=== PATIENT | male | born 1970 | race Hispanic/Latino ===

== ENCOUNTER 2017-02-07 02:23 | Emergency (ER) | payer OTHER ==
[2017-02-07 02:51] VITALS: BP 122/83; PULSE 89; RESP 18; TEMP 98.2; O2SAT 97
--- NOTE | 2017-02-07 04:12 | ED PDOC ---
Arrival/HPI <Nabil Traore - Last Filed: 02/07/17 04:23> <George Jj - Last Filed: 02/07/17 08:03> - General Chief Complaint: Medical Clearance Time Seen by Provider: 02/07/17 03:11 - History of Present Illness Narrative History of Present Illness (Text): 02/07/17 04:19 Patient is a 46 year old male presenting to the ED stating he is going through opioid withdrawal. He started abusing opioids 4 years ago. He states the last time he used was 3 days ago, when he took one 10mg percocet. He reports that he only takes pills and has never injected anything. Denies ever using heroin. He states that he has noticed that he is no longer a good person to his family, has lost a lot of weight and that his life now revolves around getting opioid pills. He states that he knows 5 different people and at what time of the month that he can call them to get the pills. He is afraid that his is going to leave him and take his 5 kids. He wants to start inpatient rehab to detox from opioids. (Nabil Traore) Past Medical History - Provider Review Nursing Documentation Reviewed: Yes - Cardiac Hx Cardiac Disorders: No - Pulmonary Hx Respiratory Disorders: No - Neurological Hx Neurological Disorder: No - HEENT Hx HEENT Disorder: No - Renal Hx Renal Disorder: No - Endocrine/Metabolic Hx Diabetes Mellitus Type 2: Yes - Hematological/Oncological Hx Blood Disorders: No - Integumentary Hx Dermatological Disorder: No - Musculoskeletal/Rheumatological Other/Comment: fx left ankle - Gastrointestinal Hx Gastritis: Yes - Genitourinary/Gynecological Hx Genitourinary Disorders: No - Psychiatric Hx Psychophysiologic Disorder: No Hx Substance Use: Yes (sunday) - Surgical History Other/Comment: "varicocele" - Anesthesia Hx Anesthesia: Yes Hx Anesthesia Reactions: No - Suicidal Assessment Feels Threatened In Home Enviroment: No <Nabil Traore - Last Filed: 02/07/17 04:23> Family/Social History - Physician Review Nursing Documentation Reviewed: Yes Family/Social History: Unknown Family HX Smoking Status: Heavy Smoker > 10 Cigarettes Daily Hx Alcohol Use: No Hx Substance Use: Yes (sunday) Substance used: percocet <Nabil Traore - Last Filed: 02/07/17 04:23> Allergies/Home Meds <Nabil Traore - Last Filed: 02/07/17 04:23> <George Jj - Last Filed: 02/07/17 08:03> Allergies/Adverse Reactions: Allergies No Known Allergies Allergy (Verified 02/07/17 02:41) Home Medications: Home Meds Medication Instructions Recorded Confirmed MetFORMIN [glucOPHAGE] 1,000 mg PO BID 02/07/17 02/07/17 Omeprazole Magnesium [Prilosec] 10 mg PO DAILY 02/07/17 02/07/17 Pioglitazone [Actos] 10 mg PO DAILY 02/07/17 02/07/17 Simvastatin [Zocor] 30 mg PO DAILY 02/07/17 02/07/17 Review of Systems - Physician Review All systems were reviewed & negative as marked: Yes - Review of Systems Constitutional: Weight Change (weight loss over 4 years ). absent: Fatigue, Fevers, Night Sweats Eyes: Normal. absent: Vision Changes Respiratory: absent: SOB, Cough, Sputum Cardiovascular: absent: Chest Pain, Palpitations, Edema Gastrointestinal: Abdominal Pain, Diarrhea Genitourinary Male: Normal Musculoskeletal: Myalgias Skin: Normal. absent: Rash, Pruritis Neurological: absent: Dizziness, Focal Weakness Endocrine: absent: Diaphoresis <Nabil Traore - Last Filed: 02/07/17 04:23> Physical Exam Vital Signs Reviewed: Yes Temperature: Afebrile Blood Pressure: Normal Pulse: Regular Respiratory Rate: Normal Appearance: Positive for: Well-Appearing, Non-Toxic, Comfortable Pain Distress: None Mental Status: Positive for: Alert and Oriented X 3 - Systems Exam Head: Present: Atraumatic, Normocephalic Extroacular Muscles: Present: EOMI Conjunctiva: Present: Normal Mouth: No: Normal Teeth (olson, cracked, missing some teeth) Nose (External): Present: Atraumatic. No: Abrasion Respiratory/Chest: Present: Clear to Auscultation. No: Respiratory Distress, Accessory Muscle Use Cardiovascular: Present: Regular Rate and Rhythm, Normal S1, S2 Abdomen: No: Tenderness, Distention, Normal Bowel Sounds (hyperactive), Peritoneal Signs Upper Extremity: Present: Normal Inspection, Normal ROM, NORMAL PULSES, Capillary Refill < 2s. No: Deformity Lower Extremity: Present: Normal Inspection, NORMAL PULSES, Capillary Refill < 2 s. No: CALF TENDERNESS, Tenderness, Deformity Neurological: Present: GCS=15, Speech Normal, Motor Func Grossly Intact Skin: Present: Warm Psychiatric: Present: Alert, Oriented x 3, Normal Insight, Normal Concentration <Nabil Traore - Last Filed: 02/07/17 04:23> Medical Decision Making <Nabil Traore - Last Filed: 02/07/17 04:23> <George Jj - Last Filed: 02/07/17 08:03> ED Course and Treatment: 02/07/17 04:11 Opioid Abuse - Patient seen by PES - no beds available at [facility] detox unit. Patient given referral list of local rehab centers for opioid detox. - Discussed withdrawal symptoms with patient. DISPO: Patient is being discharged home with no prescriptions. He is to follow up with a local rehab center of his choosing for detox from opioid abuse. (Nabil Traore) 02/07/17 Patient Seen With Resident: In agreement with resident note which contains more details about the patient. Patient was seen and evaluated with resident. Came up with plan and treatment together. (George Jj) <Nabil Traore - Last Filed: 02/07/17 04:23> - PA / DOOR BUILDER / Resident Statement MD/ has reviewed & agrees with the documentation as recorded. MD/ has examined the patient and agrees with the treatment plan. - Scribe Statement The provider has reviewed the documentation as recorded by the Scribe <George Jj - Last Filed: 02/07/17 08:03> - Scribe Statement 02/07/2017 Melany Barr Provider Scribe Attestation: All medical record entries made by the Scribe were at my direction and personally dictated by me. I have reviewed the chart and agree that the record accurately reflects my personal performance of the history, physical exam, medical decision making, and the department course for this patient. I have also personally directed, reviewed, and agree with the discharge instructions and disposition. (George Jj) Disposition/Present on Arrival - Present on Arrival Any Indicators Present on Arrival: No History of DVT/PE: No History of Uncontrolled Diabetes: No Urinary Catheter: No History of Decub. Ulcer: No History Surgical Site Infection Following: None - Disposition Have Diagnosis and Disposition been Completed?: Yes Disposition Time: 04:09 Patient Plan: Discharge <Nabil Traore - Last Filed: 02/07/17 04:23> <George Jj - Last Filed: 02/07/17 08:03> - Disposition Diagnosis: Opioid abuse Disposition: HOME/ ROUTINE Condition: GOOD Discharge Instructions (ExitCare): Opioid Withdrawal (ED) Additional Instructions: Patient given list of local rehab centers. Patient is to follow up as instructed. Referrals: Bimal Garrett MD [Primary Care Provider] - Follow up with primary Forms: [employer] (Samoan)
== END 2017-02-07 04:17 | disposition home or self-care (01) ==
LOC: ED 02:23
DX: F11.10 Opioid abuse, uncomplicated (principal)